=== PATIENT | female | born 1960 | race Caucasian/White ===

== ENCOUNTER 2016-05-19 20:11 | Emergency (ER) | payer BC ==
[2016-05-19 20:46] VITALS: BP 143/91
--- NOTE | 2016-05-19 22:40 | UC ---
Respiratory Complaint HPI - HPI Summary HPI Summary: 8 day history of chills, myalgias, cough and congestion. First day of fever was 05/17, and has had increased sinus pressure over the past 3 days. Page some wheezing tonight and was concerned about bronchitis. No chest pain or shortness of breath. - History of Current Complaint Chief Complaint: UCGeneralIllness Stated Complaint: COUGH/CONGESTION/PHIPPS/BODY ACHES Time Seen by Provider: 05/19/16 22:28 Hx Obtained From: Patient, Family/Automotive Internet Sales Consultant - here with her . ?: No Onset/Duration: Gradual Onset, Lasting Days - 8 Timing: Constant Severity Initially: Moderate Severity Currently: Moderate Character: Cough: Nonproductive Aggravating Factors: Recumbent Position - poor sleep, taking dayquil and nyquil Alleviating Factors: OTC Meds, Upright Position Associated Signs And Symptoms: Positive: Fever - now resolved., Chills, URI, Nasal Congestion, Hoarseness - Risk Factors Pulmonary Embolism Risk Factors: Negative Cardiac Risk Factors: Negative Pseudomonas Risk Factors: Negative - Allergies/Home Medications Allergies/Adverse Reactions: Allergies Allergy/AdvReac Type Severity Reaction Status Date / Time Codeine Allergy Rash And Verified 05/19/16 20:46 Itching Penicillins Allergy Rash And Verified 05/19/16 20:46 Itching Home Medications: Home Medications Cholecalciferol [Vitamin D] 2,000 unit PO DAILY 05/19/16 [History Confirmed 06/03] Naproxen Sodium 220 mg PO BID 05/19/16 [History Confirmed 05/19/16] Jfstnkzetdlou-Witnoxdyhf-Lvtpk [Daytime/Nite Time Cold/Fl] 1 sharmin PO BEDTIME PRN 05/19/16 [History Confirmed 05/19/16] Zpreihnuirfkb-Lkcthaecuf-Ctgyk [Daytime/Nite Time Cold/Fl] 1 sharmin PO DAILY PRN [History Confirmed 05/19/16] PMH/Surg Hx/FS Hx/Imm Hx Previously Healthy: Yes - Surgical History Surgical History: Yes Surgery Procedure, Year, and Place: HYSTERECTOMY. C-SECT. TONSILLECTOMY. WISDOM TEETH EXTRACTIONS. OVARIAN CYSTS REMOVED. GANGLION CYST LEFT WRIST. APPY - Family History Known Family History: Positive: Respiratory Disease - father of COPD/ was a smoker - Social History Occupation: Employed Full-time - at [employer] Alcohol Use: Occasionally Substance Use Type: None Smoking Status (MU): Never Smoked Tobacco Review of Systems Constitutional: Fever, Chills, Fatigue ENT: Sore Throat Respiratory: Cough Neurological: Headache - in maxillary sinuses. All Other Systems Reviewed And Are Negative: Yes Physical Exam Triage Information Reviewed: Yes Appearance: Ill-Appearing - looks mildly unwell Vital Signs: Initial Vital Signs Temp 98.4 F 05/19/16 20:40 Pulse 89 05/19/16 20:40 Resp 16 05/19/16 20:40 BP 143/91 05/19/16 20:40 Pulse Ox 98 05/19/16 20:40 Eyes: Positive: Conjunctiva Clear ENT: Positive: Pharyngeal erythema, TMs normal, Other: - percussive sinus tenderness, maxillary sinuses. Neck: Positive: Supple, Nontender, No Lymphadenopathy Respiratory: Positive: Lungs clear, Normal breath sounds Cardiovascular: Positive: RRR, No Murmur Musculoskeletal Exam: Normal Neurological Exam: Normal Neurological: Positive: Alert Psychological Exam: Normal Skin Exam: Normal UC Diagnostic Evaluation - Laboratory O2 Sat by Pulse Oximetry: 98 Respiratory Course/Dx - Course Course Of Treatment: cephalexin for treatment of sinusitis. - Differential Dx/Diagnosis Differential Diagnosis/HQI/PQRI: Asthma, Bronchitis, Laryngitis, Sinusitis, Other - influenza Provider Diagnoses: acute maxillary sinusitis Discharge - Discharge Plan Condition: Stable Disposition: HOME Prescriptions: Cephalexin CAP* [Keflex 500 CAP*] 500 mg PO TID #30 cap
[2016-05-19] MEDS ORDERED: Cephalexin CAP* 500 MG PO ONE (22:46)
== END 2016-05-19 22:58 | disposition home or self-care (01) ==
LOC: UCCORT 20:11
DX: J01.00 Acute maxillary sinusitis, unspecified (principal); Z88.5 Allergy status to narcotic agent; Z88.0 Allergy status to penicillin
CPT/HCPCS: 99202; A9270-GY; G0463

== ENCOUNTER 2017-06-11 08:57 | Emergency (ER) | payer BC ==
[2017-06-11 10:19] VITALS: BP 149/74
--- NOTE | 2017-06-11 10:31 | UC ---
Respiratory Complaint HPI - HPI Summary HPI Summary: cough x 1 week with no relief - using dayquil or nightquil but cough keeps her up at night, feels like she is wheezing denies fever or chills c/o sore throat now - History of Current Complaint Chief Complaint: UCRespiratory Stated Complaint: ST/COUGH/CONGESTION/SOB Time Seen by Provider: 06/11/17 10:29 Hx Obtained From: Patient Hx Last Menstrual Period: n/a Onset/Duration: Lasting Days Timing: Constant Severity Initially: Moderate Severity Currently: Moderate Pain Intensity: 6 Character: Cough: Nonproductive Alleviating Factors: OTC Meds Associated Signs And Symptoms: Positive: Wheezing - Risk Factors Pseudomonas Risk Factors: Negative Tuberculosis Risk Factors: Negative - Allergies/Home Medications Allergies/Adverse Reactions: Allergies Allergy/AdvReac Type Severity Reaction Status Date / Time codeine Allergy Rash And Verified 06/11/17 10:04 Itching Penicillins Allergy Rash And Verified 06/11/17 10:04 Itching Home Medications: Home Medications Cholecalciferol (Vitamin D3) [Vitamin D3] 1,000 unit PO BID 06/11/17 [History Confirmed 06/11/17] Dm/Acetaminophen/Doxylamine [Vicks Nyquil Cold & Flu Liquid] 1 liq PO BEDTIME PRN 06/11/17 [History Confirmed 06/11/17] Dm/PE/Acetaminophen/Doxylamine [Vicks Dayquil-Nyquil Cold-Flu] 708 ml PO Q4H PRN 06/11/17 [History Confirmed 06/11/17] Glucosam/Chond/Collagen/Hyalur [Glucosamine Chondroitin Cap] 1 cap PO BID [History Confirmed 06/11/17] Magnesium Oxide [Magnesium] 500 mg PO DAILY 06/11/17 [History Confirmed 06/11/17 ] Melatonin/Pyridoxine HCl (B6) [Melatonin 3 mg Tablet] 1 each PO BEDTIME [History Confirmed 06/11/17] Naproxen Sodium [Aleve] 220 mg PO BID PRN 06/11/17 [History Confirmed 06/11/17] Hull-3 Fatty Acids/Fish Oil [Fish Oil 1,000 mg Capsule] 1 each PO BID 06/11/17 [History Confirmed 06/11/17] PMH/Surg Hx/FS Hx/Imm Hx Previously Healthy: Yes Endocrine History: Dyslipidemia - Surgical History Surgical History: Yes Surgery Procedure, Year, and Place: HYSTERECTOMY, gallbladder 2002. C-SECT. TONSILLECTOMY. WISDOM TEETH EXTRACTIONS. OVARIAN CYSTS REMOVED. GANGLION CYST LEFT WRIST. APPY - Family History Known Family History: Positive: Respiratory Disease - father of COPD/ was a smoker - Social History Alcohol Use: Occasionally Substance Use Type: None Smoking Status (MU): Never Smoked Tobacco Review of Systems Constitutional: Negative Skin: Negative Eyes: Negative ENT: Sore Throat Respiratory: Shortness Of Breath - with coughing, Cough Cardiovascular: Negative Gastrointestinal: Negative Genitourinary: Negative Motor: Negative Neurovascular: Negative Musculoskeletal: Negative Neurological: Negative Psychological: Negative Is Patient Immunocompromised?: No All Other Systems Reviewed And Are Negative: Yes Physical Exam Triage Information Reviewed: Yes Appearance: Ill-Appearing Vital Signs: Initial Vital Signs Temp 99.3 F 06/11/17 10:11 Pulse 98 06/11/17 10:11 Resp 20 06/11/17 10:11 BP 149/74 06/11/17 10:11 Pulse Ox 98 06/11/17 10:11 Vital Signs Reviewed: Yes Eye Exam: Normal ENT: Positive: Pharyngeal erythema, TM bulging - rashard Neck exam: Normal Respiratory: Positive: Decreased breath sounds - left upper lobe, Wheezing - expiratory wheezing lower lobes Cardiovascular Exam: Normal Musculoskeletal Exam: Normal Neurological Exam: Normal Psychological Exam: Normal Skin Exam: Normal UC Diagnostic Evaluation - Laboratory O2 Sat by Pulse Oximetry: 98 Respiratory Course/Dx - Course Course Of Treatment: chest xray - NAD. take abx and prednisone as directed - discussed use and common side effects of both meds. has had tessalon pearls before for cough - take prn as directed. increase fluids daily to prevent dehydration while on abx. tylenol or ibuprpofen every 4-6 hrs prn for pain/ fever - dose as directed on bottle. f/u if symptoms not resolving or getting worse - Differential Dx/Diagnosis Differential Diagnosis/HQI/PQRI: Sinusitis Provider Diagnoses: bronchitis Discharge - Discharge Plan Condition: Good Disposition: HOME Prescriptions: Benzonatate CAP* [Tessalon 100 MG CAP*] 100 mg PO TID PRN 10 Days #30 cap MDD three PRN Reason: Cough DOXYcycline CAP(*) [DOXYcycline 100MG CAP(*)] 100 mg PO BID 10 Days #20 cap predniSONE TAB* [Deltasone TAB*] 20 mg PO DAILY 5 Days #5 tab Patient Education Materials: Acute Bronchitis (ED) Referrals: Lizzy Gaviria MD [Primary Care Provider] - 1 Week
--- NOTE | 2017-06-11 11:01 | RAD ---
Indication: Cough, wheezing. 2 views of the chest including dual energy PA views demonstrates no mediastinal shift. Heart is of normal size and configuration. Lung marcos appear clear. IMPRESSION: No active cardiopulmonary disease is noted.
== END 2017-06-11 11:17 | disposition home or self-care (01) ==
LOC: UCCORT 08:57
DX: J40 Bronchitis, not specified as acute or chronic (principal)
CPT/HCPCS: 71046; 99212; G0463

== ENCOUNTER 2018-05-31 07:45 | Day surgery (SDC) | payer BC ==
[~2018-05-31 07:45] MED LIST: Buffered Lidocaine 1% SYRIN* 1 ML/SYRINGE INTRADERM ONE; Lactated Ringers 1000 ML Bag* 1,000 ML IV SCH
[2018-05-31] MEDS ORDERED: Clindamycin 900 MG/D5W BAG(*) 900 MG/50 ML BAG IVPB ONE (07:57)
[2018-05-31] MEDS ORDERED: Dexamethasone IV* 4 MG/ML 1 ML (4 MG) ONE (09:26)
[2018-05-31] MEDS ORDERED: Lidocaine 1% INJ* 10 MG/ML 30 ML SDV ONE (09:26)
[2018-05-31] MEDS ORDERED: Bupivacaine 0.5% SDV PF* 30ML VIAL ONE (09:27)
[2018-05-31] MEDS ORDERED: Midazolam* 1 MG/ML 5 ML VIAL (5 MG) ONE (09:44)
[2018-05-31] MEDS ORDERED: fentaNYL* 50 MCG/ML 2 ML VIAL (100 MCG VIAL) ONE (09:57)
[2018-05-31] MEDS ORDERED: oxyCODONE/Acetamin 5/325 MG* TAB PO PRN (10:54)
[2018-05-31] MEDS ORDERED: Ondansetron INJ* 2 MG/ML VIAL IV PRN (10:54)
[2018-05-31] MEDS ORDERED: Naloxone* 0.4 MG/ML 1 ML VIAL IV PRN (10:54)
[2018-05-31] MEDS ORDERED: Ketorolac INJ* 30 MG/ML 1 ML VIAL IV PRN (10:54)
[2018-05-31] MEDS ORDERED: fentaNYL* 50 MCG/ML 2 ML VIAL (100 MCG VIAL) IV PRN (10:54)
[2018-05-31 11:10] VITALS: BP 142/87
--- NOTE | 2018-05-31 12:50 | OP ---
DATE OF OPERATION: 05/31/18 - [facility] DATE OF : 60. SURGEON: Gary Kevin DPM. PAPER FINISHER: None. ANESTHESIA: MAC with local. PRE-OP DIAGNOSES: 1. Chronically painful dislocated second right hammertoe. 2. Metatarsalgia with flexor tendon contracture, right foot. POST-OP DIAGNOSES: 1. Chronically painful dislocated second right hammertoe. 2. Metatarsalgia with flexor tendon contracture, right foot. OPERATIVE PROCEDURE: 1. Correction of second right hammertoe with PIPJ arthrodesis, extensor tendon lengthening and MTPJ arthrotomy with K-wire fixation. 2. Flexor digitorum longus tendon transfer, right foot. PATHOLOGY: Degenerative bone. HEMOSTASIS: Pneumatic ankle tourniquet. ESTIMATED BLOOD LOSS: Less than 10 cc. MATERIALS: A smooth 0.062 inch K-wire. INDICATIONS: The patient with chronic right forefoot pain and deformity and inflammation about the second digit and plantar second metatarsophalangeal joint. She has chronic pain, inflammation, and injury to the plantar plate, resulting in progressive rigid second right hammertoe deformity causing pain when walking wearing shoes. She opts for surgery at this time to attempt to decrease the deformity, decrease the pain and improve her ability to walk and wear shoes without pain. DESCRIPTION OF PROCEDURE: The patient was brought to the operating room and placed on the operating room table in the supine position. The anesthesia department administered IV sedation and peripheral nerve block was performed to the right foot with a 1:1 mixture of 1% lidocaine plain and 0.5% Marcaine plain. The right foot was prepped and draped in the usual fashion. The right foot was exsanguinated with an Esmarch bandage and pneumatic ankle tourniquet was inflated to 250 mmHg about a well-padded right ankle. Attention was directed to the second right digit where a curvilinear incision was made through the dorsal aspect. The dissection was carried down through the metatarsophalangeal joint and proximal interphalangeal joint. The extensor walter was released and extensor digitorum longus tendon was lengthened in a Z tendon lengthening type procedure. The metatarsophalangeal joint capsule was incised. Next, at the level of the PIPJ, a transverse tenotomy and capsulotomy was performed, allowing for exposure of the proximal phalangeal head and the base of the middle phalanx and these were resected in preparation for the arthrodesis. Power christophe was used to smooth any rough edges. The surgical site was flushed with copious amounts of normal sterile saline. McGlamry elevator was needed to free plantar adhesions. It was determined that a flexor digitorum longus tendon transfer was needed to stabilize the plantar aspect of the digit at the level of the PIPJ. The flexor digitorum longus tendon was identified and cut distally and transected longitudinally, split subperiosteally respectively medially and laterally to the dorsal aspect of the proximal phalanx. A smooth 0.062 inch K- wire was driven to the base of the middle phalanx through the tip of the toe, retrograded through the proximal phalanx across the metatarsophalangeal joint in the corrected rectus position. Next, under tension, the flexor digitorum longus tendon slips were sutured and secured dorsally with 4-0 Vicryl. The arthrodesis site was ensured to be well approximated. Redundant dorsal tendon was resected and using 4-0 Vicryl, the tendon and capsular tissues were reapproximated and secured with 4-0 Vicryl. The subcutaneous tissues were reapproximated with 4-0 Vicryl and skin was closed with 5-0 nylon. The wire had been bent, cut, and capped and dexamethasone phosphate was infiltrated at the surgical site. The incision was dressed with Xeroform gauze and a sterile light mild decompressive dressing, secured with Coban, was applied to the right forefoot. The pneumatic ankle tourniquet was deflated about the right ankle and then after a few moments, the hyperemic response was noted to all digits of the right foot. Having appeared to tolerated the procedure and anesthesia well, the patient was transported via cart from the operating room to Recovery in satisfactory condition with cap refill less than 3 seconds to all digits of the right foot. [id number]/[facility] #: [id number] [facility] HOSPITALMaribel
== END 2018-05-31 11:30 | disposition home or self-care (01) ==
LOC: OREAST 07:45
PROVIDERS: ATTEND Podiatrist Foot Surgery
DX: M20.41 Other hammer toe(s) (acquired), right foot (principal); M62.471 Contracture of muscle, right ankle and foot; M19.071 Primary osteoarthritis, right ankle and foot; D69.6 Thrombocytopenia, unspecified; E66.9 Obesity, unspecified; K76.89 Other specified diseases of liver; E78.5 Hyperlipidemia, unspecified; Z88.5 Allergy status to narcotic agent
CPT/HCPCS: 76000; 88304; 88311; C1776; J1100; J2250; J3010

== ENCOUNTER → 2018-11-08 09:40 | Day surgery (SDC) | payer BC ==
[~2018-11-08 09:40] MED LIST changes: +Acetaminophen TAB* 325 MG ONE; +Acetaminophen TAB* 325 MG PO ONE; +Acetaminophen TAB* 325 MG PO PRN; +Bupivacaine 0.25% SDV PF* 10 ML VIAL INJ ONE; +Clindamycin 900 MG IVPREMIX(* 900 MG/50 ML SDV IV ONE; +Dexamethasone IV* 4 MG/ML 1 ML (4 MG) ONE; +DiMENhydriNATE IV* 50 MG/ML VIAL IV PUSH PRN; +Famotidine IV* 10 MG/ML 2 ML (20 mg) ONE; +Gabapentin CAP(*) 300 MG ONE; +Gabapentin CAP(*) 300 MG PO ONE; +Ketorolac INJ* 30 MG/ML 1 ML VIAL ONE; +Lidocaine 2% PF * 5 ML VIAL ONE; +Midazolam* 1 MG/ML 2 ML VIAL (2 MG) ONE; +Naloxone* 0.4 MG/ML 1 ML VIAL IV PRN; +Ondansetron INJ* 2 MG/ML VIAL IV PRN; +Ondansetron INJ* 2 MG/ML VIAL ONE; +Propofol* 10 MG/ML 20 ML BTL ONE; +diPHENhydraMINE IV* 50 MG/ML 1 ml VIAL (BENADRYL) IV PRN; +fentaNYL* 50 MCG/ML 2 ML VIAL (100 MCG VIAL) IV PRN; +fentaNYL* 50 MCG/ML 2 ML VIAL (100 MCG VIAL) ONE; +traMADol TAB* 50 MG ONE
[2018-11-08 14:26] VITALS: BP 134/74
--- NOTE | 2018-11-08 16:17 | OP ---
DATE OF OPERATION: 11/08/18 - [facility] DATE OF : 60 SURGEON: Devan Philip MD. TOPOGRAPHICAL ENGINEER: NAZIA Luna. ANESTHESIOLOGIST: Dr. Rendon. ANESTHESIA: General. PRE-OP DIAGNOSIS: Refractory right tennis elbow. POST-OP DIAGNOSIS: Refractory right tennis elbow. OPERATIVE PROCEDURE: Debridement of right elbow lateral epicondylitis with tendon repair including debridement of the ECRB tendon origin. 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 We talked about treatment options. She wanted to proceed with surgical debridement. She understands that there is a risk that she will still have pain. ESTIMATED BLOOD LOSS: 2 mL. COMPLICATIONS: None. FINDINGS: See above and below. DESCRIPTION OF PROCEDURE: Evita was seen in the preoperative holding area. The correct site, side, and procedure were identified. We came back to the operating room. The arm was prepped and draped in the usual fashion. A time- out was performed. The arm was exsanguinated with the Esmarch and the tourniquet was inflated to 250 mmHg. I made an incision over the lateral elbow centered over the lateral epicondyle. Dissection was carried down. Full thickness flaps were raised off the extensor fascia. I identified the interval between the ECRL and EDC, this was opened. Just deep to ECRL tendon was an extremely degenerative ECRB tendon origin. It was all excised together with some of the capsule over the radiocapitellar joint until it was completely excised and I did take great care to preserve the origin of the lateral ulnar collateral ligament. The area was thoroughly debrided with a curette and a rongeur. I nipped off the lateral epicondyle with the rongeur. The area was irrigated out. Once everything was looking nice and clean I went ahead and repaired the ECRL tendon back to its origin on the lateral epicondyle. This was done with 0-Vicryl suture. After the tendon was repaired, I reapproximated the subcutaneous tissue with 3-0 Vicryl and the skin was closed with 4-0 Monocryl and Steri-Strips. Plain Marcaine 0.25% was infiltrated. A long-arm splint with lateral buttress was applied. After dressings were applied, she was taken to the recovery room in stable condition. [id number]/[facility] #: [id number] MTDD
== END | disposition home or self-care (01) ==
LOC: OR 09:40
PROVIDERS: ATTEND Orthopaedic Surgery Hand Surgery
DX: M77.11 Lateral epicondylitis, right elbow (principal); Z86.718 Personal history of other venous thrombosis and embolism; E78.5 Hyperlipidemia, unspecified; M19.90 Unspecified osteoarthritis, unspecified site
CPT/HCPCS: 88304; A9270-GY; J1100; J1885; J2250; J2405; J2704; J3010; J3490

== ENCOUNTER 2019-04-13 10:40 | Emergency (ER) | payer BC ==
[2019-04-13 11:46] VITALS: BP 137/74
--- NOTE | 2019-04-13 12:16 | UC ---
Throat Pain/Nasal Jose HPI - HPI Summary HPI Summary: 59 year old with recent travel to [place], no PMH, no medications, no recent abx use presents with 7 days of R>L ear pain, sore throat, cough, dry. Denies fever, chills. + fatigue. Cough worse at night, made better with humidifier last night. no GI symptoms. - History of Current Complaint Chief Complaint: UCRespiratory Stated Complaint: COUGH,EAR COMPLAINT Time Seen by Provider: 04/13/19 12:06 Hx Obtained From: Patient Hx Last Menstrual Period: n/a ?: No Onset/Duration: Sudden Onset, Lasting Weeks - 1 Severity: Moderate Pain Intensity: 8 Pain Scale Used: 0-10 Numeric Cough: Nonproductive Associated Signs & Symptoms: Positive: Sinus Discomfort, Nasal Discharge. Negative: Drooling, Wheezing, Hoarseness, Fever, Vomiting, Rash - Allergies/Home Medications Allergies/Adverse Reactions: Allergies Allergy/AdvReac Type Severity Reaction Status Date / Time Penicillins Allergy Intermediate Rash And Verified 04/13/19 11:40 Itching codeine Allergy Mild Rash And Verified 04/13/19 11:40 Itching Home Medications: Home Medications D-Methorphan/PE/Acetaminophen [Daytime Cold Multi-Symp Gelcap] 1 each PO BID PRN 04/13/19 [History Confirmed 04/13/19] PMH/Surg Hx/FS Hx/Imm Hx Previously Healthy: Yes - Surgical History Surgical History: Yes Surgery Procedure, Year, and Place: WISDOM TEETH EXTRACTIONS-1978. TONSILLECTOMY-1986. Z-ROITWMR-[id number] [facility] [facility] [place]VARIAN [place]STS REMOVED- UNSURE OF DATE [facility]. GANGLION CYST LEFT WRIST [facility]. CHOLECYSTECTOMY 2002 [facility]. HYSTERECTOMY 2008 [facility]. HAMMER TOE CORRECTION RIGHT SEC[place] [facility] [place] - Family History Known Family History: Positive: Respiratory Disease - father of COPD/ was a smoker - Social History Occupation: Employed Full-time Alcohol Use: Rare Substance Use Type: None Smoking Status (MU): Never Smoked Tobacco Have You Smoked in the Last Year: No Review of Systems All Other Systems Reviewed And Are Negative: Yes Constitutional: Negative: Fever, Chills, Fatigue Eyes: Negative: Blurred Vision, Drainage, Eye Redness ENT: Positive: Sore Throat, Ear Ache, Nasal Discharge, Sinus Congestion, Sinus Pain/Tenderness Respiratory: Positive: Cough. Negative: Shortness Of Breath Cardiovascular: Negative: Palpitations, Chest Pain Gastrointestinal: Negative: Abdominal Pain, Vomiting, Diarrhea, Nausea Is Patient Immunocompromised?: No Physical Exam Triage Information Reviewed: Yes Appearance: No Pain Distress, Well-Nourished, Ill-Appearing - mild Vital Signs: Initial Vital Signs Temp 98.7 F 04/13/19 11:41 Pulse 105 04/13/19 11:41 Resp 16 04/13/19 11:41 BP 137/74 04/13/19 11:41 Pulse Ox 98 04/13/19 11:41 Vital Signs Reviewed: Yes Eyes: Positive: Conjunctiva Clear ENT: Positive: Pharynx normal, Nasal congestion, TMs normal - left, TM red - right- unable to fully view due to 50% cerumen, Sinus tenderness. Negative: Pharyngeal erythema, Tonsillar swelling, Tonsillar exudate, Uvula midline Neck: Positive: Supple, No Lymphadenopathy, Tenderness @ - tram-auricular tenderness. Negative: Nuchal Rigidity, Enlarged Nodes @ Respiratory: Positive: Chest non-tender, Lungs clear, Normal breath sounds, No respiratory distress, No accessory muscle use. Negative: Respiratory distress, Crackles, Rhonchi, Stridor, Wheezing Cardiovascular: Positive: RRR, No Murmur Psychological Exam: Normal Throat Pain/Nasal Course/Dx - Course Course Of Treatment: sinusitis - Increase fluid intake - Antibitoics as directed - Tessalon Perles for cough as needed - Over the counter medications for symptoms - Motrin/ tylenol for pain, inflammation - Humidifier at night. - Differential Dx/Diagnosis Differential Diagnosis/HQI/PQRI: Pharyngitis, Sinusitis, Tonsillitis Provider Diagnosis: Sinusitis Discharge ED - Sign-Out/Discharge Documenting (check all that apply): Patient Departure All imaging exams completed and their final reports reviewed: No Studies - Discharge Plan Condition: Good Disposition: HOME Prescriptions: Azithromyxin DYLLAN (NF) [Z-Dyllan (Zithromax) 250 mg tabs #6] 2 tab PO .TODAY, THEN 1 DAILY #6 tab Benzonatate CAP* [Tessalon 100 MG CAP*] 100 mg PO TID PRN #30 cap PRN Reason: Cough Patient Education Materials: Sinusitis (ED) Referrals: Lizzy Gaviria MD [Primary Care Provider] - Additional Instructions: - Increase fluid intake - Antibitoics as directed - Tessalon Perles for cough as needed - Over the counter medications for symptoms - Motrin/ tylenol for pain, inflammation - Humidifier at night. - Billing Disposition and Condition Condition: GOOD Disposition: Home - Attestation Statements Provider Attestation: Per institutional requirements, I have reviewed the chart, however, I was not consulted specifically or made aware of this patient by the midlevel provider. I did not personally evaluate, interact with , or disposition this patient.
== END 2019-04-13 12:20 | disposition home or self-care (01) ==
LOC: UCCORT 10:40
DX: J32.9 Chronic sinusitis, unspecified (principal); R05 Cough; H92.09 Otalgia, unspecified ear; Z88.0 Allergy status to penicillin; Z88.5 Allergy status to narcotic agent
CPT/HCPCS: 99212; G0463